=== PATIENT | male | born 1970 | race Two or more races ===

== ENCOUNTER 2021-03-04 16:33 | Emergency (ER) | payer OTHER ==
[~2021-03-04] VITALS: Ht 188 cm; Wt 93.1 kg
[2021-03-04] MEDS ORDERED: CIPRO500 MG PO (20:13)
== END 2021-03-04 20:25 | disposition home or self-care (01) ==
LOC: FSED 16:50
DX: R10.32 Left lower quadrant pain (principal); N20.0 Calculus of kidney; E87.1 Hypo-osmolality and hyponatremia; R93.2 Abnormal findings on diagnostic imaging of liver and biliary tract
CPT/HCPCS: 74176; 80053; 81003; 85025; 99284